=== PATIENT | male | born 1960 | race Asian ===

== ENCOUNTER 2016-11-22 17:17 | Inpatient (IN) | payer OTHER ==
[2016-11-22] MEDS ORDERED: NS 1,000 ML IV ONE (17:27)
[2016-11-22 17:49] LABS: % IMMATURE GRANULYOCYTES 0.1 % (0.0-1.1); ABSOLUTE IMMATURE GRANULOCYTES 0.01 10^3/uL (0.00-0.10); ADD DIFF? NO; ADD MORPH? NO; ADD SCAN? NO; ATYPICAL LYMPHOCYTE FLAG 60 (0-99); FRAGMENT RBC FLAG 0 (0-99); HEMATOCRIT 34.8 % (40.0-51.0); HEMOGLOBIN 11.9 g/dL (13.7-17.5); LEFT SHIFT FLG 0 (0-99); LIPEMIA HEMOLYSIS FLAG 90 (0-99); MEAN CELL HEMOGLOBIN 30.1 pg (27.9-34.1); MEAN CELL HEMOGLOBIN CONCENTR. 34.2 g/dL (32.4-36.7); MEAN CELL VOLUME 88.1 fL (81.5-99.8); MEAN PLATELET VOLUME 8.7 fL (8.7-11.7); PLATELET CLUMPS FLAG 10 (0-99); PLATELET COUNT 318 10^3/uL (150-400); RED BLOOD CELL COUNT 3.95 10^6/uL (4.40-6.38); RED CELL DISTRIBUTION WIDTH 12.2 % (11.5-15.2)
[2016-11-22 17:58] LABS: ANION GAP 12 mEq/L (8-16); CALCIUM 9.1 mg/dL (8.5-10.4); CARBON DIOXIDE 25 mEq/l (22-31); CHLORIDE 99 mEq/L (97-110); CREATININE 1.2 mg/dL (0.7-1.3); GLOMERULAR FILTRATION RATE > 60; GLUCOSE 103 mg/dL (70-100); POTASSIUM 4.2 mEq/L (3.5-5.2); SODIUM 136 mEq/L (134-144)
--- NOTE | 2016-11-22 18:00 | EDPHY ---
H & P Stated Complaint: Right neck pain, fever x one week Time Seen by Provider: 11/22/16 17:33 HPI/ROS: CHIEF COMPLAINT: Fever, cough, right-sided neck pain HISTORY OF PRESENT ILLNESS: The patient presents to the ED with complaints of fever, cough and right-sided neck pain. The patient reportedly saw his primary care provider earlier in the week. He reports he had a chest x-ray done which showed some inflammation. He was started on Augmentin at that point time. Since that time his symptoms have not improved. He continues to complain of primarily right anterior neck pain and associated soft tissue swelling. He continues to feel short of breath. He denies cough. The patient does have a prior history of ulcerative colitis. He is status post colectomy. The patient denies history of pulmonary problems. He does have a history of a chronic daily headache. REVIEW OF SYSTEMS: A comprehensive 10 point review of systems is otherwise negative aside from elements mentioned in the history of present illness. Source: Patient Exam Limitations: No limitations - Personal History Current Tetanus/Diphtheria Vaccine: Yes Current Tetanus Diphtheria and Acellular Pertussis (TDAP): Yes Tetanus Vaccine Date: unsure - Medical/Surgical History Hx Asthma: No Hx Chronic Respiratory Disease: No Hx Diabetes: No Hx Cardiac Disease: Yes Hx Renal Disease: No Hx Cirrhosis: No Hx Alcoholism: No Hx HIV/AIDS: No Hx Splenectomy or Spleen Trauma: No Other PMH: ILLEOSTOMY/ULCERACIVE COLITIS, CARDIAC STENT, CHRONIC PAIN: PEREZ, - Social History Smoking Status: Never smoked - Physical Exam Exam: General Appearance: Alert, no distress Eyes: Pupils equal and round no pallor or injection ENT, Mouth: Soft tissue swelling and tenderness noted in the right anterior cervical chain which appears to be most consistent with lymphadenopathy Respiratory: Rhonchorous breath sounds bilaterally Cardiovascular: Regular rate and rhythm Gastrointestinal: Abdomen is soft and nontender, no masses, bowel sounds normal Neurological: A&O, normal motor function, normal sensory exam, normal cranial nerves Skin: Warm and dry, no rashes Musculoskeletal: Neck is supple nontender Extremities: symmetrical, full range of motion Constitutional: Initial Vital Signs Temperature (C) 39.4 C H 11/22/16 17:21 Heart Rate 113 H 11/22/16 17:21 Respiratory Rate 19 11/22/16 17:21 Blood Pressure 116/69 01/01/17 17:21 O2 Sat (%) 90 L 11/22/16 17:21 O2 Delivery Mode Nasal Cannula O2 (L/minute) 2 Allergies/Adverse Reactions: No Known Allergies Allergy (Verified 12/08/13 23:09) Home Medications: Medication Instructions Recorded Atorvastatin Calcium [Lipitor 40 40 mg PO DAILY 12/08/13 mg (RX)] Estazolam 5 mg PO 12/08/13 Fenofibrate [Tricor 145 mg (RX)] 145 mg PO 12/08/13 HYDROcodone/APAP 10/500 [Lortab 12/08/13 10/500] Lisinopril 20 mg PO 12/08/13 Mirtazapine [Remeron] 30 mg PO 12/08/13 Nitro-Stat 12/08/13 Pantoprazole Sodium [Protonix 40mg 40 mg PO BID 12/08/13 (RX)] Zolpidem Tartrate [Ambien 10 mg] 12/08/13 Promethazine HCl [Phenergan 25mg 25 mg PO Q6 PRN #20 tab 12/09/13 (RX)] oxyCODONE/APAP 5/325 [Percocet 1 tab PO Q4-6PRN PRN #10 tab 12/09/13 5/325 (RX)] Augmentin 875 MG TAB (*) 11/22/16 Medical Decision Making - Diagnostics Imaging: Chest x-ray AP lateral: Images reviewed by myself, negative for focal infiltrate. CT neck with IV contrast: Prominent lymphadenopathy noted mostly on the right side of the neck, inflammatory changes but no abscess present. Study results reported to me by Dr. Harden. ED Course/Re-evaluation: The patient presents to the emergency department for evaluation of a 1 week history of fever, slight cough, anterior neck pain and swelling and a chronic headache. The patient has no meningeal symptoms here in the ED. He does have tender prominent cervical adenopathy. A CT scan of his neck does demonstrate lymphadenopathy without abscess. Chest x-ray demonstrates no evidence of obvious pneumonia. The patient did have blood cultures x2 obtained in the ED. The etiology of the patient's symptoms are somewhat uncertain. I do feel that he should be admitted to the hospital for further evaluation of his symptoms. Antibiotics will be deferred to the admitting hospitalist as the source of the patient's fever is somewhat uncertain. Differential Diagnosis: Differential diagnosis considered includes pneumonia, bacteremia, neck abscess, meningitis, viral syndrome - Data Points Laboratory Results: Laboratory Results 11/22/16 17:30 11/22/16 17:30 11/22/16 17:30 WBC 7.51 10^3/uL (3.80-9.50) RBC 3.95 L 10^6/uL (4.40-6.38) Hgb 11.9 L g/dL (13.7-17.5) Hct 34.8 L % (40.0-51.0) MCV 88.1 fL (81.5-99.8) MCH 30.1 pg (27.9-34.1) MCHC 34.2 g/dL (32.4-36.7) RDW 12.2 % (11.5-15.2) Plt Count 318 10^3/uL (150-400) MPV 8.7 fL (8.7-11.7) Neut % (Auto) 79.0 H % (39.3-74.2) Lymph % (Auto) 8.8 L % (15.0-45.0) Gage % (Auto) 11.9 % (4.5-13.0) Eos % (Auto) 0.1 L % (0.6-7.6) Baso % (Auto) 0.1 L % (0.3-1.7) Nucleat RBC Rel Count 0.0 % (0.0-0.2) Absolute Neuts (auto) 5.93 10^3/uL (1.70-6.50) Absolute Lymphs (auto) 0.66 L 10^3/uL (1.00-3.00) Absolute Monos (auto) 0.89 H 10^3/uL (0.30-0.80) Absolute Eos (auto) 0.01 L 10^3/uL (0.03-0.40) Absolute Basos (auto) 0.01 L 10^3/uL (0.02-0.10) Absolute Nucleated RBC 0.00 10^3/uL (0-0.01) Immature Gran % 0.1 % (0.0-1.1) Immature Gran # 0.01 10^3/uL (0.00-0.10) VBG Lactic Acid 0.9 mmol/L (0.7-2.1) Sodium 136 mEq/L (134-144) Potassium 4.2 mEq/L (3.5-5.2) Chloride 99 mEq/L (97-110) Carbon Dioxide 25 mEq/l (22-31) Anion Gap 12 mEq/L (8-16) BUN 16 mg/dL (7-23) Creatinine 1.2 mg/dL (0.7-1.3) Estimated GFR > 60 Glucose 103 H mg/dL (70-100) Calcium 9.1 mg/dL (8.5-10.4) Influenza Typ A,B (DFA) NEGATIVE FOR FLU (NEGATIVE) Influenza A & B (PCR) NEGATIVE FOR FLU (NEGATIVE) Medications Given: Discontinued Medications Sodium Chloride (Ns) 1,000 mls @ 0 mls/hr IV ONCE ONE PRN Reason: Wide Open Stop: 11/22/16 17:28 Last Admin: 11/22/16 17:41 Dose: 1,000 mls Departure - Departure Disposition: [facility] Inpatient Acute Clinical Impression: Febrile illness, acute, Lymphadenopathy Condition: Fair
[2016-11-22] MEDS ORDERED: IOPAMIDOL (ISOVUE-300) 100 ML BTL IV ONE (18:28)
[2016-11-22] MEDS ORDERED: NS 500 ML IV ONE (19:00)
[2016-11-22] MEDS ORDERED: PROMETHAZINE HCL 25 MG/ML VIAL IVP PRN (19:32)
[2016-11-22] MEDS ORDERED: ONDANSETRON 4 MG/2 ML VIAL IVP PRN (19:32)
--- NOTE | 2016-11-22 19:43 | DX ---
Chest, Two Views 1746 hours History: Fever, dyspnea. Comparison: 2013, 2010 Findings: Cardiac silhouette is within normal range. Linear atelectasis bilateral lower lobes. No p neumonia, congestive heart failure, pleural effusion, or pneumothorax. Impression: 1. Linear atelectasis bilateral lower lobes . 2. No definite focal pneumonia
[2016-11-22 19:53] LABS: HEMATOCRIT 34.8 % (40.0-51.0)
[2016-11-22] MEDS ORDERED: HYDROmorphONE/DILAUDID 1 MG/ML SYR ONE (19:57)
[2016-11-22] MEDS ORDERED: HYDROmorphONE/DILAUDID 1 MG/ML SYR IVP ONE (20:01)
--- NOTE | 2016-11-22 20:26 | GHP ---
[f rep st] HISTORY AND PHYSICAL DATE OF ADMISSION: 11/22/2016 CHIEF COMPLAINT: Fever. HISTORY OF PRESENT ILLNESS: This is a 56-year-old male with history of ulcerative colitis who presented to the hospital today with 2 weeks of worsening fever up to 104. The patient saw his primary care provider last week on Wednesday where he was started on Augmentin. Since starting Augmentin his fevers have persisted. He denies any chest pain or shortness of breath. He does report some vague neck pain. Once again, he has a history of ulcerative colitis with colectomy and colostomy. He denies any changes in his stool habits and denies any diarrhea. PAST MEDICAL HISTORY: 1. Ulcerative colitis. 2. Coronary artery disease, status post stent placement. 3. Hypertension. PAST SURGICAL HISTORY: Colectomy with colostomy. HOME MEDICATIONS: Percocet, Ambien, Phenergan, Protonix, Remeron, Lortab, Tricor, Lipitor. ALLERGIES: No known drug allergies. SOCIAL HISTORY: He denies any alcohol, tobacco, or illicit drug use. FAMILY HISTORY: Reviewed and noncontributory. REVIEW OF SYSTEMS: Comprehensive 10-point review of systems was done and is negative except for what was mentioned in the HPI. PHYSICAL EXAM: VITAL SIGNS: Blood pressure 131/79, pulse of 101, respiratory rate 14, O2 saturation 96% on 2 L. Temperature currently afebrile but T-max was 39.4 on initial presentation to the emergency department. GENERAL: Ill- appearing. HEAD: Normocephalic, atraumatic. EYES: PERRLA. EARS: Left TM is slightly injected without obvious infection. MOUTH: Moist mucous membranes. Normal posterior oropharynx. Uvula midline. NECK: Supple with shotty anterior cervical lymphadenopathy. CARDIOVASCULAR: Tachycardic S1, S2. No JVD. No lower extremity edema. PULMONARY: Lungs are clear. No wheezes, rales, or rhonchi. ABDOMEN: Soft, nontender, nondistended. No guarding or rebound tenderness. Normoactive bowel sounds. EXTREMITIES: No clubbing or cyanosis. NEURO: Cranial nerves 2-12 grossly intact. No focal motor or sensory deficits. SKIN: Clear no rashes. DIAGNOSTICS: WBC 7.5, hemoglobin 11.9, hematocrit 34.8, platelets 318. Venous lactic acid 0.9. Sodium 136, potassium 4.2, chloride 99, CO2 25, BUN 16, creatinine 1.2, glucose 103. Influenza was negative by PCR and DFA. Chest x-ray, which I visualized and personally interpreted, final read is pending but does not show any obvious pneumonia. There is a vague infiltrate on the right heart border that has not changed from a previous chest x-ray done in 2014, which I reviewed. CT of the neck, which is also currently pending final read, showed cervical lymphadenopathy without any obvious source of infection. ASSESSMENT AND PLAN: This is a 56-year-old male presenting with: 1. Two weeks of fever with systemic inflammatory response syndrome, not responding to Augmentin. Differential diagnosis includes viral illness versus other occult bacterial infection, which seems less likely given his negative blood cultures and lack of leukocytosis on today's laboratory studies in the setting of not improving on Augmentin versus autoimmune cause such as vasculitis versus malignancy. PLAN: 1. The patient will be admitted to the medical-surgical floor where we will treat his symptoms supportively. I have ordered Toradol as needed for fever. Blood cultures have been sent. We will send an ESR, CRP, and vasculitis panel. Given the fact that the patient does not have an obvious source of infection. I will defer continuing antibiotics at this time. We will likely consult Infectious Disease in the morning. I would recommend starting broad-spectrum empiric antibiotics, if he develops signs of severe sepsis or shock. 2. Mild normocytic anemia. Plan is monitor. 3. History of ulcerative colitis. Plan is send stool for Clostridium difficile. /[id number]/MODL MTDD
[2016-11-22] MEDS ORDERED: ACETAMINOPHEN 500 MG TAB ONE (20:31)
[2016-11-22] MEDS ORDERED: ACETAMINOPHEN 500 MG TAB PO ONE (20:38)
[2016-11-22] MEDS ORDERED: NON-FORMULARY NEW DRUG (Zolpidem Tartrate [Ambien 10 Mg] 10 MG) PO PRN (21:40)
[2016-11-22] MEDS: ZOLPIDEM TARTRATE 5 MG TAB PO PRN (22:03)
[2016-11-22] MEDS: MIRTAZAPINE 30 MG TAB PO SCH (22:03)
[2016-11-22] MEDS: KETOROLAC 30 MG/1 ML SDV IVP PRN (22:09)
[2016-11-22] MEDS: D5W 1/2 NS W/ 20 KCl/L 1,000 ML IV SCH (22:10)
[2016-11-23] MEDS ORDERED: MEPERIDINE 25 MG/ML SYR IVP ONE ×2 (02:28→08:30)
[2016-11-23] MEDS ORDERED: MEPERIDINE 25 MG/ML SYR ONE (02:30)
--- NOTE | 2016-11-23 02:41 | CPEKG ---
Heart Rate: 139 RR Interval: 432 P-R Interval: 140 QRSD Interval: 82 QT Interval: 280 QTC Interval: 426 P Hiller: 77 QRS Hiller: 72 T Wave Hiller: 10 EKG Severity - BORDERLINE ECG - EKG Impression: SINUS TACHYCARDIA Electronically Signed By: Roosevelt Goetz 24-Nov-2016 21:32:48
[2016-11-23] MEDS: ACETAMINOPHEN 325 MG TAB PO PRN ×4 (02:57→22:14)
[2016-11-23 03:05] LABS: COLOR PALE YELLOW; LEUKOCYTE ESTERASE,URINE NEGATIVE (NEGATIVE); NITRITE,URINE NEGATIVE (NEGATIVE)
[2016-11-23] MEDS: KETOROLAC 30 MG/1 ML SDV IVP PRN ×3 (03:08→18:05)
[2016-11-23 03:35] LABS: ALANINE AMINOTRANSFERASE 25 IU/L (21-72); ALBUMIN 3.6 g/dL (3.5-5.0); ALKALINE PHOSPHATASE 32 IU/L (38-126); ANION GAP 13 mEq/L (8-16); ASPARTATE AMINOTRANSFERASE 37 IU/L (17-59); BILIRUBIN,TOTAL 0.6 mg/dL (0.1-1.4); CALCIUM 8.5 mg/dL (8.5-10.4); CARBON DIOXIDE 22 mEq/l (22-31); CHLORIDE 106 mEq/L (97-110); CREATININE 1.2 mg/dL (0.7-1.3); GLOMERULAR FILTRATION RATE > 60; GLUCOSE 115 mg/dL (70-100); POTASSIUM 4.4 mEq/L (3.5-5.2); SODIUM 141 mEq/L (134-144); TOTAL PROTEIN 6.8 g/dL (6.3-8.2)
[2016-11-23 03:42] LABS: % IMMATURE GRANULYOCYTES 0.4 % (0.0-1.1); ABSOLUTE IMMATURE GRANULOCYTES 0.03 10^3/uL (0.00-0.10); ADD DIFF? NO; ADD MORPH? NO; ADD SCAN? NO; ATYPICAL LYMPHOCYTE FLAG 0 (0-99); FRAGMENT RBC FLAG 0 (0-99); HEMATOCRIT 33.5 % (40.0-51.0); HEMOGLOBIN 11.4 g/dL (13.7-17.5); LEFT SHIFT FLG 0 (0-99); LIPEMIA HEMOLYSIS FLAG 90 (0-99); MEAN CELL HEMOGLOBIN 30.4 pg (27.9-34.1); MEAN CELL VOLUME 89.3 fL (81.5-99.8); MEAN PLATELET VOLUME 9.4 fL (8.7-11.7); PLATELET CLUMPS FLAG 0 (0-99); PLATELET COUNT 318 10^3/uL (150-400); RED BLOOD CELL COUNT 3.75 10^6/uL (4.40-6.38); RED CELL DISTRIBUTION WIDTH 12.6 % (11.5-15.2)
[2016-11-23 04:13] LABS: INR 1.12 (0.83-1.16); PROTIME(PATIENT) 14.3 SEC (12.0-15.0)
[2016-11-23 04:14] LABS: APTT 31.6 SEC (23.0-38.0)
[2016-11-23] MEDS: HYDROmorphONE/DILAUDID 1 MG/ML SYR IVP PRN ×2 (05:13→10:40)
[2016-11-23] MEDS: ENOXAPARIN 40 MG/0.4 ML SYR SC SCH (08:15)
--- NOTE | 2016-11-23 08:38 | CT ---
CT Scan of Neck Soft Tissues (With Contrast Enhancement) 1841 hours History: Right neck pain, fever, swelling. Technique: Axial computed tomographic images of the neck soft tissues obtained from the sternoclavicu lar joint to the skull base during the uneventful intravenous administration of 80 mL Isovue-300 cont rast. Dose reduction techniques were utilized. Findings: Right posterior cervical lymph nodes appear enlarged and inflamed with surrounding inflamma tory changes measuring up to 15 x 10 mm, images 47 through supraclavicular region up to image 73, con sistent with cellulitis given the patient's history. No evidence of parotid or submandibular inflamma tory changes. Airway is patent. Carotids are unremarkable. Thyroid gland is homogeneous. No drainable abscess. Impression: 1. Right posterior cervical space enlarged lymphadenopathy with surrounding inflammatory changes from the level of the carotid bifurcation through the supraclavicular region, probably infectious/inflamm atory. 2. No drainable abscess. Findings and recommendations discussed with Emergency Department physician, Dr. Nicolás Medley, at 18 55 hours today. Final report concurs with initial preliminary interpretation.
[2016-11-23] MEDS: FENOFIBRATE 145 MG TAB PO SCH (10:20)
[2016-11-23] MEDS: amLODIPine BESYLATE 5 MG TAB PO SCH (10:20)
--- NOTE | 2016-11-23 12:16 | HOSPPROG ---
Hospitalist Progress Note Assessment/Plan: this is a 56-year-old male with history of ulcerative colitis presenting with: # high fevers for 2 weeks with prior history of slow to resolve fever in the setting of lymphadenitis - I discussed the case with Dr. Ray from Infectious Disease will see the patient in consultation - add HIV, Rheumatoid factor, MARIA C, LDH to pending labs - patient tells me that he has had a lymph node biopsy done at [facility], [place] that was unremarkable. # history of ulcerative colitis dispo: continue inpatient care Subjective: CONTINUES TO HAVE FEVERS OVERNIGHT. no change in neck swelling. Objective: Vital Signs Temp Pulse Resp BP Pulse Ox 36.9 C 106 H 18 149/85 H 99 11/23/16 10:17 11/23/16 10:17 11/23/16 07:48 11/23/16 10:11/23/16 07:48 Laboratory Results 11/23/16 03:00 11/23/16 03:00 11/22/16 11/23/16 11/24/16 05:59 05:59 05:59 Intake Total 2390 Output Total 875 550 Balance 1515 -550 PT 14.3 SEC (12.0-15.0) 11/23/16 03:55 INR 1.12 (0.83-1.16) 11/23/16 03:55 gen nad cv rrr pulm clear abd soft pos cervical lymphadenopathy - Physical Exam Constitutional: uncomfortable Eyes: PERRL, anicteric sclera, EOMI Ears, Nose, Mouth, Throat: moist mucous membranes, hearing normal, ears appear normal, no oral mucosal ulcers, other ( Posterior cervical lymphadenopathy on the right ; neck is supple with no meningismus) Cardiovascular: regular rate and rhythym, no murmur, rub, or gallop, No edema Respiratory: no respiratory distress, no rales or rhonchi, clear to auscultation Gastrointestinal: normoactive bowel sounds, soft, non-tender abdomen, no palpable masses, No guarding, No rebound Skin: no rashes or abrasions, no fluctuance, no induration, No rash Neurologic: AAOx3, sensation intact bilaterally ICD10 Worksheet Patient Problems: Problems Problem Status Diagnosed Febrile illness, acute Acute Lymphadenopathy Acute
[2016-11-23] MEDS: D5W 1/2 NS W/ 20 KCl/L 1,000 ML IV SCH ×2 (13:34→19:52)
[2016-11-23 14:05] LABS: LACTATE DEHYDROGENASE 403 IU/L (313-618)
--- NOTE | 2016-11-23 17:58 | GCON ---
[f rep st] CONSULTATION INFECTIOUS DISEASE CONSULTATION DATE OF CONSULTATION: 11/23/2016 REFERRING PHYSICIAN: Tae Chun DO REASON FOR CONSULTATION: Fevers. CHIEF COMPLAINT: Fevers and right neck pain. HISTORY OF PRESENTING ILLNESS: This is a 56-year-old male, originally from [place] but who has been here since 1987, with the last travel to [place] 7 years ago. History of ulcerative colitis, status post colectomy, who was admitted yesterday after complaints of fevers for 2 weeks, fluctuating, but ranging up to 104. He currently lives in [place], [place], where he has been for the past 3 years as part of his work. He comes home here to his periodically. He was here during , as well as May 25 of this year, and then prior to that was November of 2015, so he may come home once in 6 months, perhaps. He states that he started to feel ill while he was in [place] about 2 weeks ago, with fevers and sweats. He has also had worsening of his chronic headaches , as well. Denies neck stiffness. He had initial vomiting for the 1st few days , as well as some shortness of breath, as well. He states he has no longer vomited for the past 1-1/2 weeks and his breathing is more stable now, and denies any shortness of breath at rest. He denies any sputum production, coughing up any blood. He denies any sinus pressure or nasal drainage. He denies any recent sick contacts at work or at home. He works for [employer]/ [employer]. He states he cannot give me a detailed description about his job, but states [place]. 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 He states that he is not really doing any outside field work. He states he says he has been doing this same job for the past perhaps 3- 1/2 years. He has not come in contact with rodents. He does not have any landscaping. He has 1 cat who is indoor and lives here in [place] and the only time he sees him is when he comes home for a visit. This cat does scratch his forearms when he plays. He has had the cat for 8 years. He denies any known TB contacts or history of tuberculosis. He states he has had workup as far as a PPD is concerned for tuberculosis, like a TB screen in the past at some point; he cannot remember any details about the results. He came to [place] about a week ago. He saw his primary care doctor and was given Augmentin, and even despite being on Augmentin he has continued to have spiking fevers to 104. Over the past 1 week he started developing increasing neck pain, especially on the right side of his neck. He denies any tooth pain or gum pain, sore throat, difficulty swallowing, ear pain, or ear drainage. He was actually seen by me 4 years ago in the office for persistent fevers. At that time, an extensive workup was done and the only abnormal blood work that was found was an elevated MARIA C screen at 3.35 with an MARIA C titer of 1:640 in a speckled fashion. At that time, I had coordinated his care with his primary care doctor, Dr. Fabby Stauffer and had recommended a rheumatology referral. She stated that she would set up the referral from that point onwards. On speaking with the patient, he has not seen a pharmaceutical development technician. At that time, he was living here in [place]. He only recently moved to [place] in the past 3 to 3-1/2 years for his job. REVIEW OF SYSTEMS: GENERAL: Fevers and shaking chills. Some sweats, as well. HEAD: Headache that is different slightly different than his chronic headaches, but is somewhat better today. Denies any neck stiffness. EYES: No change in vision. ENT: No sore throat, difficulty swallowing, ear pain, ear drainage, tooth pain, gum pain, or any oral lesions. CARDIOVASCULAR: Denies any chest pain or rapid heart beat. RESPIRATORY: Had some shortness of breath at the onset of his symptoms, but that has improved. He states he is no longer short of breath. He is not coughing up any phlegm or coughing up any blood. ABDOMEN: Had some vomiting initially during the onset of symptoms, but that has resolved. No nausea, no abdominal pain. No diarrhea. : No dysuria or hematuria. BACK: No back pain or flank pain. MUSCULOSKELETAL: Denies any joint pains or muscle aches. SKIN: Denies any rashes or open wounds; however, he does have some scratch simmons on his arms bilaterally. There is no surrounding cellulitis. ENDOCRINE: Denies any weight loss. Rest of 10-point review of systems essentially negative except for above. PAST MEDICAL HISTORY: Significant for ulcerative colitis, coronary artery disease, chronic headaches, hypertension, chronic pain. PAST SURGICAL HISTORY: Significant for colectomy, ileostomy, cardiac stent. ALLERGIES: No known drug allergies. SOCIAL HISTORY: Denies smoking, alcohol, or illicit drug usage. He has 1 cat that he has had for 8 years that is indoors and is healthy. He otherwise lives with his here in [place]; however, he has been working in [place] for pas 3-1/2 years near [place], [place]. He states that it is a desert-like area. 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 He works for sort of the [employer] and is unable to give me details about his work. He denies close contact with rodents. He denies any landscaping exposures. He denies any recent TB contacts or recent sick contacts. He has not traveled internationally in the last 7 years. Last trip was to [place]. He is originally from [place]. He moved here in 1987 and has been here since. FAMILY HISTORY: Significant for coronary artery disease. PHYSICAL EXAM: VITAL SIGNS: Temperature current 37.2, T-max 39.5. Pulse current is 91. He originally had a pulse of 118. Blood pressure current is 124 /74. Respiratory rate is 16; it was 24 earlier this morning. O2 saturations currently are 97% on 2 L O2 by the nasal cannula. O2 saturation on admission was 90%. GENERAL: He is resting in bed. No acute respiratory distress. Awake , alert, and oriented x3. HEENT: Head is normocephalic, atraumatic. Pupils are equal, round, reactive to light. No conjunctival injection or petechiae noted. Oropharynx is clear. There is no posterior pharyngeal erythema or thrush. No oropharyngeal lesions noted. NECK: He has cervical lymphadenopathy appreciated on the right posterior chain ranging between several of them that are perhaps 1 cm , somewhat sort of clumped together. They are tender on palpation. CARDIOVASCULAR: S1, S2. Regular rate and rhythm. No obvious murmurs appreciated. RESPIRATORY: Mild coarse breath sounds at the bases. No obvious rhonchi or rales. ABDOMEN: Positive bowel sounds heard in all quadrants. Soft, nontender, nondistended. No obvious organomegaly appreciated. He has a well-healed midline abdominal scar noted and then he has an ileostomy in the right abdomen noted. EXTREMITIES: No obvious lower extremity edema. MUSCULOSKELETAL: No obvious joint pain or pain on palpation of the joints. No joint effusions appreciated. LYMPH NODES: No obvious axillary or inguinal lymph nodes appreciated. LABS: White blood cell count is 7.9, hemoglobin 11.4, platelets are 318, neutrophil count of 72%. ESR is 37. INR 1.1. PT 14.3, PTT 31.6. D-dimer 0.4. Venous lactic acid 0.9. Chemistry: Sodium 141, potassium 4.4, chloride 106, bicarb 22, BUN is 11, creatinine 1.2, glucose is 115, AST 37, ALT 25, total bilirubin 0.6, alk phos is 32, LDH is 403. C-reactive protein 77. Lipase is 62. Urinalysis unremarkable. No proteins, no blood, no ketones, negative nitrites, negative leukocyte esterase. Rheumatoid factor 10 and repeat MARIA C is pending. Previous MARIA C screen in August 2012 was 3.35 with a titer of 1:640 in a speckled pattern. Protein is 3 and myeloperoxidase antibody is pending. EBV antibodies are pending. A mono screen is negative. HIV 1 and 2 are pending. Microbiology: Blood cultures x2 sets are pending. IMAGING: Chest x-ray shows bilateral linear atelectasis. On review of his previous x-rays over the past several years, he has had some intermittent atelectasis at the bases, but no obvious pneumonia or consolidations noted. Neck CT images reviewed with Radiology, Dr. Cook, which showed right posterior cervical lymphadenopathy with some mild inflammatory changes. They do not appear to be matted, according to Dr. Cook. ASSESSMENT: Fevers of uncertain origin with right cervical lymphadenopathy. PLAN: Differential diagnosis is broad but may include and is not limited to infectious etiologies such as coccidioidomycosis, Bartonella, tularemia or possibly tuberculosis versus viral etiology versus autoimmune versus malignancy. Several studies are in progress. Will evaluate them and follow. Will check a coccidiomycosis antibody, Bartonella antibody, T spot, tularemia titer. The patient may need a biopsy of the lymph node if tests are unremarkable. Discussed possibly checking a CAT scan of the chest, abdomen, and pelvis if fevers persists and other work up is unrevealing. Patient currently refusing unless fevers persist. Differential diagnosis discussed with the patient. Plan of care discussed with the patient. I reviewed his Ct neck images personally with radiology, Dr. Cook. I thank you very much for allowing me this opportunity to care for your patient in consultation. /[id number]/MODL MTDD
[2016-11-23] MEDS: MIRTAZAPINE 30 MG TAB PO SCH (19:46)
[2016-11-23] MEDS ORDERED: ATORVASTATIN CALCIUM 40 MG TAB PO SCH (21:00)
[2016-11-23] MEDS ORDERED: CLOPIDOGREL BISULFATE 75 MG TAB PO SCH (21:00)
[2016-11-23] MEDS: ZOLPIDEM TARTRATE 5 MG TAB PO PRN (22:14)
[2016-11-24] MEDS: KETOROLAC 30 MG/1 ML SDV IVP PRN ×2 (03:58→11:52)
[2016-11-24] MEDS: D5W 1/2 NS W/ 20 KCl/L 1,000 ML IV SCH (03:59)
[2016-11-24] MEDS: ACETAMINOPHEN 325 MG TAB PO PRN (06:02)
[2016-11-24 08:08] VITALS: RESP 18
[2016-11-24] MEDS: FENOFIBRATE 145 MG TAB PO SCH (10:49)
[2016-11-24] MEDS: amLODIPine BESYLATE 5 MG TAB PO SCH (10:49)
[2016-11-24] MEDS: ENOXAPARIN 40 MG/0.4 ML SYR SC SCH (10:49)
[2016-11-24] MEDS ORDERED: IBUPROFEN 600 MG TAB PO PRN (12:37)
[2016-11-24] MEDS: oxyCODONE IR 5 MG TAB PO PRN ×2 (13:00→17:01)
[2016-11-24 14:21] LABS: ANTI EBNA Positive (Negative); ANTI VCA/IgG Positive (Negative); ANTI VCA/IgM Negative (Negative); EBV IGG EARLY ANTIGEN Positive (Negative)
--- NOTE | 2016-11-24 14:47 | GDS ---
[f rep st] DISCHARGE SUMMARY DISCHARGE DIAGNOSES: 1. Fever of uncertain origin with right cervical lymphadenopathy (recurrent). 2. History of ulcerative colitis status post proctocolectomy in 1990. CONSULTANTS: Bennie Ray MD, Infectious Disease. HOSPITAL COURSE: Recurrent fevers: The patient was admitted to the hospital where he has continued to be febrile. Toradol was ordered which seems to have helped, however, the patient tells me that he thinks the Toradol may be causing some problems with sweating. At this time, his last fever was 38. 6 at 4 in the morning. The patient was seen by Dr. Ray from Infectious Disease who ordered extensive infectious workup whic h was largely refused by the patient. Blood cultures done on admission have been negative. HIV test was negative. [place] screen was negative. Influenza was negative. Stool for C diff. was negative. On initial presentation, the patient was found to have some lymphadenopathy with no drainable abscess . We did discuss the possibility of lymph node biopsy which the patient was not currently interested in. Once again, he has a history of fevers. In the past, his MARIA C was positive. Repeat MARIA C was wn this hospital stay as well as ANCA panel for vasculitis was done which is currently pending. Prio r to discharge, I discussed the case with Dr. Ryan from Rheumatology who will try to get the patient an appointment with his partner later on this week. Diagnosis of temporal arteritis was considered, however, the patient does not have a tender temporal artery cord and his headaches sound rather nonspecific and have been going on for years. On the day of discharge, the patient is somewhat frustrated since he has not had a diagnosis of his s ource of fever, but is rather confident that these fevers will go away since this is the usual course for him. I did offer further hospitalization which the patient does not want at this time, and feel s comfortable being discharged with outpatient followup. Prior to discharge, I did discuss the case with his primary care provider, Dr. Mamadou Arteaga, who will see him in consultation as well. PHYSICAL EXAM: VITAL SIGNS: On the day of discharge, blood pressure 135/91, heart rate 91, respirat ory rate 18, O2 saturation 97% on room air. Temperature afebrile. GENERAL: No acute distress. HEA RT: S1, S2. LUNGS: Clear. ABDOMEN: Soft. EXTREMITIES: No edema. SKIN: No rash. HEMATOLOGIC: There is no synovitis. LABS AND STUDIES DONE THIS HOSPITAL STAY: A neck CT done 11/22/2016 refer to report. PENDING LABS: antibodies are pending. MARIA C is pending. PR3 and myeloperoxidase antibodie s are pending. TB interferon gamma is pending. Tularemia antibody is pending. DISCHARGE MEDICATIONS: Please refer to the discharge medication reconciliation in [facility] for melvin zamora. DISCHARGE INSTRUCTIONS: The patient will be discharged from the hospital where he plans to follow up with Rheumatology later on this week. He should also follow up with his primary care provider to di radhauss lymph node biopsy if his symptoms persist. He should follow up with Dr. Ray to review pending serologies. TIME: Greater than 1 hour was spent on the discharge of this patient. /[id number]/MODL
[2016-11-24 15:52] VITALS: BP 143/76; PULSE 90; TEMP 98.1; O2SAT 95
[2016-11-25 21:42] LABS: BARTONELLA HENSELAE IGG <1:128 titer (<1:128); BARTONELLA HENSELAE IGM <1:20 titer (<1:20); BARTONELLA QUINTANA IGM <1:20 titer (<1:20)
[2016-11-26 12:37] LABS: ANTINUCLEAR ANTIBODIES SCREEN 6.54 UNITS (<1.00)
[2016-11-27 14:45] LABS: FRANCISELLA (TULAREMIA) AB <1:20 (())
[2016-11-27 17:43] LABS: TB INTERFERON GAMMA RELEASE AS NEGATIVE (NEGATIVE)
== END 2016-11-24 17:17 | disposition home or self-care (01) | DRG 864 ==
LOC: OBSVTOIN 18:59 → F1N 20:45
PROVIDERS: ADMIT Family Medicine; ATTEND Family Medicine
DX: R50.9 Fever, unspecified (principal); R59.1 Generalized enlarged lymph nodes; G89.29 Other chronic pain; I10 Essential (primary) hypertension; R51 Headache; Z95.5 Presence of coronary angioplasty implant and graft
CPT/HCPCS: 83516-90; 83520-90; 86611-90; 86635-90; 86644-90; 86645-90; 86663-90; 86664-90; 86665-90; 86668-90; J1170; J1650; J1885; J2550; Q9967

== ENCOUNTER 2018-09-15 15:49 | Inpatient (IN) | payer OTHER ==
[2018-09-15] MEDS ORDERED: HYDROmorphONE/DILAUDID 2 MG/ML INJ IVP ONE ×3 (16:30→19:03)
[2018-09-15] MEDS ORDERED: NS 1,000 ML IV ONE (16:30)
[2018-09-15] MEDS ORDERED: ONDANSETRON 4 MG/2 ML VIAL IVP ONE ×2 (16:30→19:03)
--- NOTE | 2018-09-15 16:34 | EDPHY ---
H & P Stated Complaint: feels colostomy is blocked/abd pain Time Seen by Provider: 09/15/18 16:24 HPI/ROS: CHIEF COMPLAINT: Small-bowel obstruction HISTORY OF PRESENT ILLNESS: Patient is a 58-year-old man with history of ulcerative colitis and total colectomy with an ileostomy in place for the last 10 years. He reports that for the last 24 hr he has not had any air or stool output into his ileostomy bag. He is having abdominal distention, no tenderness. He has not had any urinary symptoms. He has felt nauseous but has not vomited. His original surgery was done in [place] by a doctor who no longer lives here. Severity: Moderate Modifying factors: None REVIEW OF SYSTEMS: Constitutional: denies: chills, fever, recent illness, recent injury EENTM: denies: blurred vision, double vision, nose congestion Respiratory: denies: cough, shortness of breath Cardiac: denies: chest pain, irregular heart rate, lightheadedness, palpitations Gastrointestinal/Abdominal: denies: abdominal pain, diarrhea, nausea, vomiting, blood streaked stools Genitourinary: denies: dysuria, frequency, hematuria, pain Musculoskeletal: denies: joint pain, muscle pain Skin: denies: lesions, rash, jaundice, bruising Neurological: denies: headache, numbness, paresthesia, tingling, dizziness, weakness Hematologic/Lymphatic: denies: blood clots, easy bleeding, easy bruising Immunologic/allergic: denies: HIV/AIDS, transplant 10 systems reviewed and negative except as noted EXAM: GENERAL: Well-appearing, well-nourished and in no acute distress. HEAD: Atraumatic, normocephalic. EYES: Pupils equal round and reactive to light, extraocular movements intact, sclera anicteric, conjunctiva are normal. ENT: TMs normal, nares patent, oropharynx clear without exudates. Moist mucous membranes. NECK: Normal range of motion, supple without lymphadenopathy or JVD. LUNGS: Breath sounds clear to auscultation bilaterally and equal. No wheezes rales or rhonchi. HEART: Regular rate and rhythm without murmurs, rubs or gallops. ABDOMEN: Distended, ileostomy in place, empty bag, no erythema or drainage. BACK: No CVA tenderness, no spinal tenderness, step-offs or deformities EXTREMITIES: Normal range of motion, no pitting or edema. No clubbing or cyanosis. NEUROLOGICAL: Cranial nerves II through XII grossly intact. Normal speech, normal gait. 5/5 strength, normal movement in all extremities, normal sensation , normal reflexes PSYCH: Normal mood, normal affect. SKIN: Warm, dry, normal turgor, no visible rashes or lesions. Source: Patient Exam Limitations: No limitations - Personal History Current Tetanus Diphtheria and Acellular Pertussis (TDAP): Yes Tetanus Vaccine Date: unsure - Medical/Surgical History Hx Asthma: No Hx Chronic Respiratory Disease: No Hx Diabetes: No Hx Cardiac Disease: Yes Hx Renal Disease: No Hx Cirrhosis: No Hx Alcoholism: No Hx HIV/AIDS: No Hx Splenectomy or Spleen Trauma: No Other PMH: ILLEOSTOMY/ULCERACIVE COLITIS, CARDIAC STENT, CHRONIC PAIN: PEREZ, - Family History Significant Family History: No pertinent family hx - Social History Smoking Status: Never smoked Alcohol Use: Sober Drug Use: None Constitutional: Initial Vital Signs Temperature (C) 36.9 C 09/15/18 15:57 Heart Rate 104 H 09/15/18 15:57 Respiratory Rate 18 09/15/18 15:57 Blood Pressure 162/102 H 09/15/18 15:57 O2 Sat (%) 92 09/15/18 15:57 O2 Delivery Mode Nasal Cannula O2 (L/minute) 2 Allergies/Adverse Reactions: No Known Allergies Allergy (Verified 09/15/18 15:56) Home Medications: Medication Instructions Recorded Atorvastatin Calcium [Lipitor 40 40 mg PO HS 12/08/13 mg (*)] Mirtazapine [Remeron] 60 mg PO HS 12/08/13 Clopidogrel Bisulfate [Clopidogrel] 75 mg PO HS 11/22/16 Lisinopril [Zestril 40 mg (*)] 40 mg PO DAILY 11/22/16 Zolpidem Tartrate [Ambien 10 mg] 10 mg PO HS PRN 11/22/16 FENOFIBRATE 160 mg PO HS 09/15/18 Morphine Sulfate [Ms Contin] 30 mg PO TID 09/15/18 amLODIPine BESYLATE [Norvasc 10 mg 10 mg PO HS 09/15/18 (*)] metFORMIN HCL [Metformin HCl ER] 500 mg PO DAILY 09/15/18 Medical Decision Making ED Course/Re-evaluation: 5:50 p.m. I discussed the case with Dr. Anne Marie Trevino who will admit. Patient is asking for another dose of Dilaudid. Differential Diagnosis: Partial list of the Differential diagnosis considered include but were not limited to; small-bowel obstruction, hernia and although unlikely based on the history and physical exam, I also considered ischemia, volvulus. - Data Points Laboratory Results: Laboratory Results 09/15/18 16:42 09/15/18 16:42 Medications Given: Amlodipine Besylate (Norvasc) 10 mg PO HS AJIT Stop: 03/14/19 20:59 Last Admin: 09/16/18 00:58 Dose: 10 mg Atorvastatin Calcium (Lipitor) 40 mg PO HS AJIT Stop: 03/14/19 20:59 Last Admin: 09/16/18 00:58 Dose: 40 mg Potassium Chloride/Dextrose/Sod Cl (D5w 1/2 Ns W/ 20 Kcl/L) 1,000 mls @ 100 mls /hr IV CONT AJIT Stop: 03/14/19 18:59 Last Admin: 09/15/18 22:06 Dose: 1,000 mls Mirtazapine (Remeron) 60 mg PO HS AJIT Stop: 03/14/19 20:59 Last Admin: 09/16/18 00:58 Dose: 60 mg Morphine Sulfate (Ms Contin/Oramorph Sr) 30 mg PO TID AJIT Stop: 09/25/18 21:59 Last Admin: 09/16/18 00:58 Dose: 30 mg Morphine Sulfate (Morphine) 2 - 5 mg IVP Q4HRS PRN PRN Reason: Pain, Severe Unable to Take PO Stop: 09/25/18 22:00 Last Admin: 09/16/18 03:24 Dose: 4 mg Ondansetron HCl (Zofran) 4 mg IVP Q4HRS PRN PRN Reason: Nausea/Vomiting, Can't Take PO Stop: 03/14/19 18:49 Last Admin: 09/15/18 21:08 Dose: 4 mg Promethazine HCl (Phenergan) 6.25 mg IVP Q6HRS PRN PRN Reason: Nausea/Vomiting, Can't Take PO Stop: 03/14/19 22:00 Last Admin: 09/15/18 22:14 Dose: 6.25 mg Discontinued Medications Hydromorphone HCl (Dilaudid) 0.5 mg IVP EDNOW ONE Stop: 09/15/18 16:31 Last Admin: 09/15/18 16:41 Dose: 0.5 mg Hydromorphone HCl (Dilaudid) 0.5 mg IVP EDNOW ONE Stop: 09/15/18 17:56 Last Admin: 09/15/18 17:58 Dose: 0.5 mg Hydromorphone HCl (Dilaudid) 1 mg IVP EDNOW ONE Stop: 09/15/18 19:04 Last Admin: 09/15/18 19:15 Dose: 1 mg Sodium Chloride (Ns) 1,000 mls @ 0 mls/hr IV EDNOW ONE; Wide Open PRN Reason: Protocol Stop: 09/15/18 16:31 Last Admin: 09/15/18 16:40 Dose: 1,000 mls Ondansetron HCl (Zofran) 4 mg IVP EDNOW ONE Stop: 09/15/18 16:31 Last Admin: 09/15/18 16:41 Dose: 4 mg Ondansetron HCl (Zofran) 4 mg IVP EDNOW ONE Stop: 09/15/18 19:04 Last Admin: 09/15/18 19:14 Dose: 4 mg Departure - Departure Disposition: Home, Routine, Self-Care Clinical Impression: Small bowel obstruction Condition: Fair
[2018-09-15 17:00] LABS: PLATELET COUNT 292 10^3/uL (150-400)
[2018-09-15] MEDS ORDERED: HYDROmorphONE/DILAUDID 1 MG/ML INJ ONE (17:54)
[2018-09-15] MEDS ORDERED: ACETAMINOPHEN 325 MG TAB PO PRN (18:50)
[2018-09-15] MEDS ORDERED: ZOLPIDEM TARTRATE 5 MG TAB PO PRN (18:50)
--- NOTE | 2018-09-15 19:55 | GHP ---
DATE OF ADMISSION: 09/15/2018 CHIEF COMPLAINT: Small bowel obstruction. HISTORY OF PRESENT ILLNESS: The patient is a 58-year-old man with a history of ulcerative colitis, s tatus post subtotal colectomy with ileostomy. Yesterday, when he was traveling, he developed abdomin al pain and stopped with associated nausea and vomiting. He stopped passing gas or stool into his ap pliance. His had him fly home, and she brought him straight to the emergency room. Today, he h as been nauseated but no vomiting. He continues to have abdominal pain. X-ray obtained in the ER wi th bowel obstruction. PAST MEDICAL HISTORY: Ulcerative colitis, coronary artery disease, hypertension, diabetes, chronic p ain. PAST SURGICAL HISTORY: Colectomy, stent placement. ALLERGIES: No known drug allergies. SOCIAL HISTORY: No tobacco use. FAMILY HISTORY: Noncontributory. PHYSICAL EXAMINATION: VITAL SIGNS: 36.9, 125, 172/102, 16, 97% on nasal cannula. GENERAL: Pleasan t, lying in bed, well groomed. at bedside. HEENT: Normocephalic. No gross hearing deficits. Mucous membranes moist. Pupils equal and round. No scleral icterus. LUNGS: Clear to auscultation bilaterally. No increased work of breathing. CARDIAC: Tachycardic. ABDOMEN: Distended. Bowel so unds hypoactive. He has scant amount of gas and stool in his appliance. His ostomy is pink, with ex cellent profile. He has a large, midline abdominal incision. SKIN: Warm and dry. PSYCH: Mood and affect normal. NEURO: Grossly intact. LABORATORY DATA: Results reviewed. His white blood cell count is normal, and his creatinine is 1.2, which is stable. IMPRESSION AND PLAN: 58-year-old with ulcerative colitis and small bowel obstruction. I have ordere d a CT scan. I will admit him. Since he is not actively vomiting, I will hold off on NG tube. We d iscussed possibility of needing to go to the operating room. He did have a bowel obstruction a coupl e years ago, which was able to resolve with bowel rest. I am hopeful this will be able to do the [facility] e. /[id number]/MODL
[2018-09-15] MEDS ORDERED: BENZOCAINE UNIT DOSE SPRAY HURRICAINE MM ONE (20:35)
[2018-09-15] MEDS: ONDANSETRON 4 MG/2 ML VIAL IVP PRN (21:08)
[2018-09-15] MEDS ORDERED: PROMETHAZINE HCL 25 MG/ML INJ IVP PRN (22:01)
[2018-09-15] MEDS ORDERED: LORazepam 2 MG/ML INJ IVP PRN (22:01)
[2018-09-15] MEDS: D5W 1/2 NS W/ 20 KCl/L 1,000 ML IV SCH (22:06)
[2018-09-15] MEDS: ATORVASTATIN CALCIUM 40 MG TAB PO SCH (22:14)
[2018-09-15] MEDS: morphINE SR 30 MG TAB PO SCH (22:14)
[2018-09-15] MEDS: MIRTAZAPINE 30 MG TAB PO SCH (22:14)
[2018-09-16] MEDS: morphINE SR 30 MG TAB PO SCH ×4 (00:58→20:04)
[2018-09-16] MEDS: ATORVASTATIN CALCIUM 40 MG TAB PO SCH ×2 (00:58→20:03)
[2018-09-16] MEDS: MIRTAZAPINE 30 MG TAB PO SCH ×2 (00:58→20:03)
[2018-09-16 05:20] LABS: PLATELET COUNT 249 10^3/uL (150-400)
[2018-09-16] MEDS: D5W 1/2 NS W/ 20 KCl/L 1,000 ML IV SCH ×2 (07:05→17:27)
--- NOTE | 2018-09-16 12:02 | ASMTCMCOM ---
CM Note CM Note Notes: Pt is a 58y/o male who presented to the ED with a small bowel obstruction. Pt has had a total colectomy with an ileostomy in place for last 10 years. Pt lives independently at home. he works for [employer]. No CM needs identified at this time. CM will follow for changes. D/C Plan: Anticipate independent. Date Signed: 09/16/2018 12:02 PM Electronically Signed By:Deneen Nixon
--- NOTE | 2018-09-16 13:24 | SOAPPROG ---
SOAP Progress Note Assessment/Plan: Assessment/Plan: 58yo M with admitted with small bowel obstruction Pain improved No vomiting since NGT placed Now passing flatus and stool into ostomy appliance NPO Gastrograffin challenge test -give 100mL gastrograffin with 50mL water via NG. Clamp NG x 4 hours, then xray. If contrast through small bowel into appliance or pt has BM, then remove NG. If contrast NOT through small bowel into appliance or nausea, then return NG to suction S: nausea and pain much improved this morning. passing gas and stool into appliance O: General: Pleasant, well-nourished and well-groomed man in no acute distress HENT: Normocephalic, no gross hearing deficits, mucous membranes moist, pupils equal and round Lungs: No increased work of breathing Cardiac: no peripheral edema Abdomen: Hypoactive bowel sounds, much softer than last night, slightly distended. Ileostomy gas in appliance. Skin: Warm and dry. Psych: Mood and affect normal Neuro: Grossly intact Objective: Vital Signs Temp Pulse Resp BP Pulse Ox 37.1 C 93 12 113/73 95 09/16/18 12:00 09/16/18 12:00 09/16/18 12:00 09/16/18 12:00 09/16/18 12:00 Laboratory Results 09/16/18 04:27 09/16/18 04:27 09/15/18 09/16/18 09/17/18 05:59 05:59 05:59 Intake Total 496 368 Output Total 1100 300 Balance -604 68 ICD10 Worksheet Patient Problems: Problems Problem Status Onset Small bowel obstruction Acute Febrile illness, acute Acute Lymphadenopathy Acute
[2018-09-16] MEDS: ONDANSETRON 4 MG/2 ML VIAL IVP PRN (17:35)
[2018-09-17] MEDS: ONDANSETRON 4 MG/2 ML VIAL IVP PRN (02:31)
[2018-09-17] MEDS: D5W 1/2 NS W/ 20 KCl/L 1,000 ML IV SCH (04:33)
--- NOTE | 2018-09-17 06:52 | PDMN ---
Medical Necessity Medical necessity: Change to inpt as of 09/16/18 @ 4329. Pt meets inpt criteria per MD order and MCG M-210, Intestinal Obstruction. 58 y/o w/hx of ulcerative colitis, s/p subtotal colectomy w/ileostomy presented w/abd pain and nausea/ vomiting, admitted w/small bowel obstruction requiring NG tube placement. Est LOS>2MN for ongoing eval/management.
[2018-09-17] MEDS: morphINE SR 30 MG TAB PO SCH (08:21)
--- NOTE | 2018-09-17 08:30 | PDDCSUM ---
Discharge Summary Discharge Summary: DISCHARGE SUMMARY Date of Admission September 15 Date of Discharge September 17 DISCHARGE DIAGNOSES -small-bowel obstruction, resolved HOSPITAL COURSE The patient was admitted from the ED where a CT scan showed SBO. He was treated conservatively and a modified SBFT showed contrast through his small bowel on HD #2. His diet was subsequently advanced and was well tolerated. They were discharged home in stable condition on the morning of the DISCHARGE MEDICATIONS NONE DISPOSITION home FOLLOW UP Follow up with [facility] as needed Total DC time = 20 minutes
[2018-09-17 08:48] VITALS: BP 126/70
--- NOTE | 2018-09-17 10:04 | ASDISCHSUM ---
Discharge Information Plan Status:Home with No Needs Medically Cleared to Leave:09/17/2018 Discharge Date:09/17/2018 CM D/C Disposition:Home, Routine, Self-Care ADT D/C Disposition:Home, Routine, Self-Care Projected Discharge Date:09/17/2018 Transportation at D/C:Family Discharge Delay Reason: Follow-Up Date:09/17/2018 Discharge Slot: Final Diagnosis: Placement Information Patient Contact Information Contact Name:CATRACHITA Relationship: Address:[address] [place] [address] City:[place] Alternate Phone: State/Zip Code:[place] [address] Email: Financial Information Financial Class:HMO and PPO Plans Primary Plan Desc:Fronto ANITA Primary Plan Number:[id number] Secondary Plan Desc: Secondary Plan Number: Assessment Information LACE LACE Length of stay for Answers: 1 day current admission Acuity / Level of Answers: Yes Care: Did the patient have an inpatient admission? Comorbidities - select Answers: Coronary Artery Disease all that apply Diabetes (uncontrolled or controlled) Opioid dependence / Chronic pain Other Notes: Ulcerative colitis; HTN # of Emergency department Answers: 1-2 visits in the last 6 months Score: 13 Date Signed: 09/17/2018 10:01 AM Electronically Signed By:CARMELLA Blair [facility] CM Progress Note CM Note CM Note Notes: Pt is a 58y/o male who presented to the ED with a small bowel obstruction. Pt has had a total colectomy with an ileostomy in place for last 10 years. Pt lives independently at home. he works for [employer]. No CM needs identified at this time. CM will follow for changes. D/C Plan: Anticipate independent. Date Signed: 09/16/2018 12:02 PM Electronically Signed By:Deneen Nixon Case Management Discharge Plan Note Case Management Discharge Discharge Order Complete? Answers: Yes Patient to Obtain Answers: via Family Medications Transportation Arranged Answers: Family/Friends Discharge Comments Notes: Pt is discharging home today with family and no CM needs. Date Signed: 09/17/2018 10:03 AM Electronically Signed By:CARMELLA Blair Intervention Information
== END 2018-09-17 12:04 | disposition home or self-care (01) | DRG 387 ==
LOC: F3E 21:47 → OBSVTOIN 09-16 16:45
PROVIDERS: ADMIT Surgery; ATTEND Surgery
DX: K51.912 Ulcerative colitis, unspecified with intestinal obstruction (principal); Z93.3 Colostomy status; I25.10 Atherosclerotic heart disease of native coronary artery without angina pectoris; G89.29 Other chronic pain; I10 Essential (primary) hypertension; E11.9 Type 2 diabetes mellitus without complications; Z95.5 Presence of coronary angioplasty implant and graft
CPT/HCPCS: 96374; G0378; J1170; J2270; J2405; J2550